=== PATIENT | female | born 1995 | race Caucasian/White ===

== ENCOUNTER 2019-03-04 10:55 | Outpatient (CLI) | payer BC ==
--- NOTE | 2019-03-04 12:21 | MRI ---
MRI LUMBAR SPINE NONCONTRAST: HISTORY: Low back pain with radiation down the left leg. Disc bulge. COMPARISON: None FINDINGS: Appropriate T1 marrow signal intensity of lumbar vertebra. Lumbar spine vertebral body height is main tained. No fracture. No significant STIR hyperintensity to suggest vertebral body edema or ligamentous injury. There are large T2 hyperintensities at the S3 level, incompletely evaluated. Symmetric signal intensity of the paraspinal muscles. Appropriate signal intensity in the visualized solid organs. There is slight prominence of the right intrarenal collecting system and proximal right ureter, incompletely evaluated Conus medullaris terminates at the upper aspect of L1 Nonspecific fluid in the endometrium. Multiple follicles in both ovaries. T12-L1:No significant central canal stenosis or neural foraminal narrowing L1-L2:No significant central canal stenosis or neural foraminal narrowing L2-L3:No significant central canal stenosis or neural foraminal narrowing L3-L4:Central disc protrusion. No significant loss of disc space height. Mild central canal stenosis. Neural foramina are patent bilaterally. L4-L5:Generalized disc bulge, without significant central canal stenosis. No significant loss of disc space height. Neural foramina are patent. L5-S1:Central/left subarticular disc protrusion. No significant stenosis of the thecal sac. Right sub articular zone is unremarkable. Disc material abuts and partially obscures the traversing left S1 nerve root. Right neural foramen is patent. Moderate left foraminal narrowing predominantly due to di sc material. IMPRESSION: 1. Degenerative disc disease at L3-L4 and L4-L5 without significant central canal stenosis 2. Disc protrusion into the left subarticular zone at L5-S1 with partial obscuration of the traversi ng left S1 nerve root. 3. Incompletely evaluated T2 hyperintense focus at the S3 level measuring 1.3 x 1.8 cm. Dedicated im aging of the sacrum is recommended. 4. Mild prominence of the right intrarenal collecting system and proximal right ureter, incompletely evaluated. Consider further evaluation to exclude possible right-sided obstructive uropathy. CODE T Transcribed Date/Time: 03/04/2019 12:32 PM
== END 2019-03-04 10:56 | disposition home or self-care (01) ==
LOC: TBSIIMAG 10:55
PROVIDERS: ATTEND Neurological Surgery
DX: M51.36 Other intervertebral disc degeneration, lumbar region (principal); M51.27 Other intervertebral disc displacement, lumbosacral region
CPT/HCPCS: 72148

== ENCOUNTER 2019-07-21 15:36 | Outpatient (CLI) | payer BC ==
--- NOTE | 2019-07-21 16:36 | RAD ---
LUMBAR SPINE TWO VIEW SERIES: 07/21/19 INDICATION: Lumbar disc degeneration. History of surgery. FINDINGS: There is left sided fusion with pedicle screws of L5 and S1 and a vertical interconnecting taj. Inter vening disc space prosthesis at L5-S1 is also present. The lumbar spine alignment is maintained as are the vertebral body heights. IMPRESSION: Postoperative lumbosacral spine. No acute hardware complication is identified. POS: C
== END 2019-07-21 15:37 | disposition home or self-care (01) ==
LOC: TBSIIMAG 15:36
PROVIDERS: ATTEND Neurological Surgery
DX: M51.36 Other intervertebral disc degeneration, lumbar region (principal); Z98.890 Other specified postprocedural states
CPT/HCPCS: 72100